=== PATIENT | male | born 1945 | race Caucasian/White ===

== ENCOUNTER 2017-01-12 23:15 | Inpatient (IN) | payer OTHER ==
[~2017-01-12] VITALS: Ht 188 cm; Wt 152.1 kg
[~2017-01-12 23:15] MED LIST: ALLOPURINOL300 MG PO; ALPHAGAN P100 DROP/5 BOTH EYES; ATACAND4 MG PO; ATENOLOL-CHLOR1 EAC1 PO; BISOPROLOL-HCT1 EACH PO; BYETTA10 MCG/0.0 SQ; CALCITRIOL0.25 MCG PO; CARDURA4 MG PO; CEFTIN500 MG PO; DIOVAN320 MG PO; FLONASE16 G1 BOTH NARES; FUROSEMIDE40 MG PO; GLUCOVANCE 5-51 EACH PO; GLUCOVANCE 51 TABLET PO; HUMALOG100 UNIT/2 SC; IRON325 M1 PO; KLOR-CON M2020 MEQ PO; LANTUS 10100 UNITS/ SC; LANTUS 3 M100 UNITS1 PO; LANTUS100 UNIT/1 SQ; LASIX40 MG PO; METADATE ER20 MG PO; METHYLPHENIDATE40 MG PO; NORVASC10 MG PO; NOVOLOG PE100 UNITS/ SC; NOVOLOG100 UNIT/1 SC; PRED FORTE100 DROP/5 BOTH EYES; RITALIN SR, MET20 MG PO; RITALIN-SR20 MG PO; TRAMADOL HCL50 MG PO; VITAMIN D-32000 UNI2 PO; VITAMIN D250000 UNIT PO; WARFARIN SODIUM5 MG PO; ZIAC 2.5/6.251 TAB PO; ZITHROMAX Z-PA250 MG PO; [UNRECOGNIZED DRUG - CODE] LEFT EYE
[2017-01-13 00:58] LABS: HEMATOCRIT 41.5 % (38.0-50.0); MCH 29.4 PG (29.0-34.0); MCHC 32.8 G/DL (30.0-36.0); MCV 89.6 FL (86-99); MEAN PLAT.VOLUME 11.8 uM^3 (9.0-12.4); PLATELET COUNT 218 K/uL (156-360); RBC DIS.WIDTH-CV 14.4 % (11.8-14.6); RBC DIS.WIDTH-SD 47.5 % (39-53); RED BLOOD COUNT 4.63 M/uL (4.00-5.50); WHITE BLOOD COUNT 13.2 K/uL (4.1-10.2)
[2017-01-13 01:06] LABS: CHLORIDE 101 mEq/L (99-109); POTASSIUM 4.6 mEq/L (3.7-5.4); SODIUM 137 mEq/L (136-147)
[2017-01-13 01:08] LABS: GLUCOSE 310 mg/dL (70-99)
[2017-01-13 01:09] LABS: ANION GAP 13 MEQ/L (2-14); INTER. NORMALIZED RATIO 2.3; PROTHROMBIN TIME 23.8 (9.2-11.2); PTT 42.4 (25-32)
[2017-01-13 01:10] LABS: TOTAL BILIRUBIN 0.6 mg/dL (0.0-1.0)
[2017-01-13 01:11] LABS: ALKALINE PHOSPHATASE 80 IU/L (3-129)
[2017-01-13 01:12] LABS: GFR ESTIMATE (CALCULATED) 24 mL/min/
[2017-01-13 01:13] LABS: UREA NITROGEN (BUN) 17 mg/dL (9-23)
[2017-01-13 01:17] LABS: TROP-I INTERPRETATION NEGATIVE; TROPONIN-I 0.06 ng/mL (0.0-0.30)
[2017-01-13] MEDS ORDERED: WARFARIN SODIUM4 MG PO (02:03)
[2017-01-13] MEDS ORDERED: BASAGLAR K100 UNIT/1 SC (02:05)
[2017-01-13] MEDS ORDERED: HUMALOG100 UNIT/2 SC (02:05)
[2017-01-13] MEDS ORDERED: METOPROLOL TART50 MG PO (02:06)
[2017-01-13] MEDS ORDERED: TRAMADOL HCL50 MG PO (02:07)
[2017-01-13] MEDS ORDERED: RANITIDINE HCL150 MG PO (02:08)
[2017-01-13] MEDS ORDERED: ERGOCALCIF50000 UNIT PO (02:08)
[2017-01-13] MEDS ORDERED: MIRALAX17 GM PO (02:08)
[2017-01-13 04:28] VITALS: BP 145/63
[2017-01-13 04:59] VITALS: BP 145/63
[2017-01-13 06:56] LABS: POINT-OF-CARE METER ID UU14188577
[2017-01-13 07:03] LABS: METH RESISTANT S AUREUS PCR NEGATIVE (NEGATIVE); PROBE CHECK PASS; SPECIMEN PROCESSING CONTROL PASS
[2017-01-13 08:48] VITALS: BP 151/68
[2017-01-13 12:30] VITALS: BP 122/58
[2017-01-13 13:29] LABS: BASOPHIL COUNT 0.1 K/uL (0-0.1); EOSINOPHIL COUNT 0.2 K/uL (0-0.3); HEMATOCRIT 36.3 % (38.0-50.0); IMMATURE GRANULOCYTE (%) 0.5 % (0.0-0.7); IMMATURE GRANULOCYTE COUNT 0.1 K/uL; INSTRUMENT ABS NEUTROPHIL CT 7.3 K/uL; LYMPHOCYTE COUNT 1.3 K/uL (1.0-2.8); MCH 28.7 PG (29.0-34.0); MCHC 31.7 G/DL (30.0-36.0); MCV 90.5 FL (86-99); MEAN PLAT.VOLUME 11.5 uM^3 (9.0-12.4); MONOCYTE (%) 7.4 % (3-12); MONOCYTE COUNT 0.7 K/uL (0-0.8); NEUTROPHIL (%) 75.6 % (45-76); NEUTROPHIL COUNT 7.3 K/uL (1.8-6.4); PLATELET COUNT 185 K/uL (156-360); RBC DIS.WIDTH-CV 14.5 % (11.8-14.6); RBC DIS.WIDTH-SD 48.4 % (39-53); RED BLOOD COUNT 4.01 M/uL (4.00-5.50); WHITE BLOOD COUNT 9.6 K/uL (4.1-10.2)
[2017-01-13 13:39] LABS: ANION GAP 7 MEQ/L (2-14); CHLORIDE 102 MEQ/L (99-109); GFR ESTIMATE (CALCULATED) 26 mL/min/; GLUCOSE 232 mg/dL (70-99); SAMPLE HEMOLYSIS CHECK 1; SAMPLE ICTERIC CHECK 0; SAMPLE LIPEMIA CHECK 0; SODIUM 135 MEQ/L (136-147); UREA NITROGEN (BUN) 22 mg/dL (9-23)
[2017-01-13 16:21] VITALS: BP 152/72
[2017-01-13 19:35] VITALS: BP 151/69
[2017-01-13 21:55] LABS: POINT-OF-CARE METER ID UU14188577
[2017-01-14] VITALS (7 sets, daily range): BP systolic 101–184; BP diastolic 51–86
[2017-01-14 06:42] LABS: INTER. NORMALIZED RATIO 2.6; PROTHROMBIN TIME 26.8 (9.2-11.2)
[2017-01-14 06:58] LABS: INTERNAL CONTROL VALID? YES
[2017-01-14 07:35] LABS: POINT-OF-CARE METER ID UU14188577
[2017-01-14 09:24] LABS: HEMATOCRIT 36.9 % (38.0-50.0); MCHC 32.2 G/DL (30.0-36.0); PLATELET COUNT 181 K/uL (156-360); RBC DIS.WIDTH-CV 14.5 % (11.8-14.6); RBC DIS.WIDTH-SD 47.6 % (39-53); WHITE BLOOD COUNT 8.4 K/uL (4.1-10.2)
[2017-01-14 09:37] LABS: ANION GAP 11 MEQ/L (2-14); CHLORIDE 101 MEQ/L (99-109); POTASSIUM 3.5 MEQ/L (3.7-5.4); SAMPLE HEMOLYSIS CHECK 0; SAMPLE ICTERIC CHECK 0; SAMPLE LIPEMIA CHECK 0; SODIUM 136 MEQ/L (136-147)
[2017-01-14 09:43] LABS: GFR ESTIMATE (CALCULATED) 27 mL/min/; GLUCOSE 199 mg/dL (70-99); UREA NITROGEN (BUN) 29 mg/dL (9-23)
[2017-01-14 13:26] LABS: AHBS INDEX 0; HBSG INDEX 0.23; HEPATITIS B SURFACE ANTIBODY Nonreactive
[2017-01-14 13:47] LABS: POINT-OF-CARE METER ID UU14188577
[2017-01-14 16:06] LABS: POINT-OF-CARE METER ID UU14188577
[2017-01-15 04:26] VITALS: BP 133/63
[2017-01-15 05:54] LABS: BASOPHIL COUNT 0.1 K/uL (0-0.1); EOSINOPHIL (%) 5.6 % (0-5); EOSINOPHIL COUNT 0.5 K/uL (0-0.3); HEMATOCRIT 36.3 % (38.0-50.0); IMMATURE GRANULOCYTE (%) 0.5 % (0.0-0.7); INSTRUMENT ABS NEUTROPHIL CT 5.4 K/uL; MCHC 32.2 G/DL (30.0-36.0); MCV 89.9 FL (86-99); MEAN PLAT.VOLUME 11.4 uM^3 (9.0-12.4); MONOCYTE (%) 9.5 % (3-12); MONOCYTE COUNT 0.8 K/uL (0-0.8); NEUTROPHIL (%) 61.3 % (45-76); NEUTROPHIL COUNT 5.4 K/uL (1.8-6.4); PLATELET COUNT 185 K/uL (156-360); RBC DIS.WIDTH-CV 14.2 % (11.8-14.6); RBC DIS.WIDTH-SD 46.7 % (39-53); RED BLOOD COUNT 4.04 M/uL (4.00-5.50); WHITE BLOOD COUNT 8.8 K/uL (4.1-10.2)
[2017-01-15 06:01] LABS: POINT-OF-CARE METER ID UU14188577
[2017-01-15 06:26] LABS: ALKALINE PHOSPHATASE 63 IU/L (3-129); ANION GAP 8 MEQ/L (2-14); CHLORIDE 99 MEQ/L (99-109); GFR ESTIMATE (CALCULATED) 23 mL/min/; GLUCOSE 172 mg/dL (70-99); POTASSIUM 4.4 MEQ/L (3.7-5.4); SAMPLE HEMOLYSIS CHECK 1; SAMPLE ICTERIC CHECK 0; SAMPLE LIPEMIA CHECK 0; SODIUM 136 MEQ/L (136-147); TOTAL BILIRUBIN 0.4 MG/DL (0.0-1.0); UREA NITROGEN (BUN) 32 mg/dL (9-23)
[2017-01-15 07:09] LABS: INTER. NORMALIZED RATIO 2.3; PROTHROMBIN TIME 23.8 (9.2-11.2)
[2017-01-15 07:30] VITALS: BP 124/65
[2017-01-15 11:49] VITALS: BP 125/67
[2017-01-15 16:15] VITALS: BP 147/67
[2017-01-15 20:31] VITALS: BP 130/59
[2017-01-15 21:05] LABS: POINT-OF-CARE METER ID UU14149397
[2017-01-15 23:52] VITALS: BP 113/57
[2017-01-16 03:59] VITALS: BP 124/59
[2017-01-16 06:26] LABS: BASOPHIL COUNT 0.1 K/uL (0-0.1); EOSINOPHIL (%) 6.7 % (0-5); EOSINOPHIL COUNT 0.6 K/uL (0-0.3); HEMATOCRIT 35.6 % (38.0-50.0); IMMATURE GRANULOCYTE (%) 0.6 % (0.0-0.7); IMMATURE GRANULOCYTE COUNT 0.1 K/uL; INSTRUMENT ABS NEUTROPHIL CT 5.7 K/uL; LYMPHOCYTE COUNT 1.6 K/uL (1.0-2.8); MCH 28.7 PG (29.0-34.0); MCV 89.7 FL (86-99); MEAN PLAT.VOLUME 11.5 uM^3 (9.0-12.4); MONOCYTE (%) 8.8 % (3-12); MONOCYTE COUNT 0.8 K/uL (0-0.8); NEUTROPHIL (%) 64.9 % (45-76); NEUTROPHIL COUNT 5.7 K/uL (1.8-6.4); PLATELET COUNT 186 K/uL (156-360); RBC DIS.WIDTH-CV 14.1 % (11.8-14.6); RBC DIS.WIDTH-SD 46.7 % (39-53); RED BLOOD COUNT 3.97 M/uL (4.00-5.50); WHITE BLOOD COUNT 8.8 K/uL (4.1-10.2)
[2017-01-16 06:48] LABS: INTER. NORMALIZED RATIO 2.2; PROTHROMBIN TIME 23.1 (9.2-11.2)
[2017-01-16 06:53] LABS: ALKALINE PHOSPHATASE 59 IU/L (3-129); ANION GAP 10 MEQ/L (2-14); CHLORIDE 97 MEQ/L (99-109); GFR ESTIMATE (CALCULATED) 21 mL/min/; GLUCOSE 183 mg/dL (70-99); POTASSIUM 4.3 MEQ/L (3.7-5.4); SAMPLE HEMOLYSIS CHECK 0; SAMPLE ICTERIC CHECK 0; SAMPLE LIPEMIA CHECK 0; SODIUM 134 MEQ/L (136-147); TOTAL BILIRUBIN 0.4 MG/DL (0.0-1.0); UREA NITROGEN (BUN) 47 mg/dL (9-23); URIC ACID 5.8 mg/dL (3.1-9.2)
[2017-01-16 08:03] VITALS: BP 146/79
[2017-01-16 12:03] VITALS: BP 116/62
[2017-01-16 16:13] VITALS: BP 138/67
[2017-01-16 19:36] VITALS: BP 121/58
[2017-01-16 23:34] VITALS: BP 112/53
[2017-01-17 03:38] VITALS: BP 131/63
[2017-01-17 05:40] LABS: BASOPHIL COUNT 0.1 K/uL (0-0.1); EOSINOPHIL (%) 6.5 % (0-5); EOSINOPHIL COUNT 0.6 K/uL (0-0.3); HEMATOCRIT 33.9 % (38.0-50.0); IMMATURE GRANULOCYTE (%) 0.6 % (0.0-0.7); IMMATURE GRANULOCYTE COUNT 0.1 K/uL; INSTRUMENT ABS NEUTROPHIL CT 5.7 K/uL; LYMPHOCYTE COUNT 1.5 K/uL (1.0-2.8); MCHC 32.4 G/DL (30.0-36.0); MCV 89.4 FL (86-99); MEAN PLAT.VOLUME 11.7 uM^3 (9.0-12.4); MONOCYTE (%) 11.2 % (3-12); NEUTROPHIL (%) 64.5 % (45-76); NEUTROPHIL COUNT 5.7 K/uL (1.8-6.4); PLATELET COUNT 162 K/uL (156-360); RBC DIS.WIDTH-CV 14.1 % (11.8-14.6); RBC DIS.WIDTH-SD 46.3 % (39-53); RED BLOOD COUNT 3.79 M/uL (4.00-5.50); WHITE BLOOD COUNT 8.9 K/uL (4.1-10.2)
[2017-01-17 05:45] LABS: INTER. NORMALIZED RATIO 2.3; PROTHROMBIN TIME 24.5 (9.2-11.2)
[2017-01-17 05:54] LABS: ALKALINE PHOSPHATASE 52 IU/L (3-129); ANION GAP 8 MEQ/L (2-14); ANION GAP 9 MEQ/L (2-14); CHLORIDE 98 MEQ/L (99-109); GFR ESTIMATE (CALCULATED) 22 mL/min/; GLUCOSE 169 mg/dL (70-99); POTASSIUM 4.4 MEQ/L (3.7-5.4); POTASSIUM 4.5 MEQ/L (3.7-5.4); SAMPLE HEMOLYSIS CHECK 0; SAMPLE ICTERIC CHECK 0; SAMPLE LIPEMIA CHECK 0; SODIUM 133 MEQ/L (136-147); SODIUM 134 MEQ/L (136-147); TOTAL BILIRUBIN 0.4 MG/DL (0.0-1.0); UREA NITROGEN (BUN) 57 mg/dL (9-23); UREA NITROGEN (BUN) 58 mg/dL (9-23)
[2017-01-17 15:35] VITALS: BP 125/59
[2017-01-17 19:32] VITALS: BP 119/69
[2017-01-17 23:35] VITALS: BP 116/55
[2017-01-18 04:30] VITALS: BP 125/60
[2017-01-18 05:51] LABS: BASOPHIL COUNT 0.1 K/uL (0-0.1); EOSINOPHIL (%) 5.8 % (0-5); EOSINOPHIL COUNT 0.4 K/uL (0-0.3); HEMATOCRIT 35.5 % (38.0-50.0); IMMATURE GRANULOCYTE (%) 0.5 % (0.0-0.7); INSTRUMENT ABS NEUTROPHIL CT 4.7 K/uL; LYMPHOCYTE COUNT 1.3 K/uL (1.0-2.8); MCH 28.5 PG (29.0-34.0); MCHC 31.5 G/DL (30.0-36.0); MCV 90.3 FL (86-99); MEAN PLAT.VOLUME 11.5 uM^3 (9.0-12.4); MONOCYTE (%) 12.6 % (3-12); NEUTROPHIL (%) 62.8 % (45-76); NEUTROPHIL COUNT 4.7 K/uL (1.8-6.4); PLATELET COUNT 166 K/uL (156-360); RBC DIS.WIDTH-CV 14.3 % (11.8-14.6); RBC DIS.WIDTH-SD 46.9 % (39-53); RED BLOOD COUNT 3.93 M/uL (4.00-5.50); WHITE BLOOD COUNT 7.5 K/uL (4.1-10.2)
[2017-01-18 05:58] LABS: INTER. NORMALIZED RATIO 2.1; PROTHROMBIN TIME 21.7 (9.2-11.2)
[2017-01-18 06:13] LABS: ALKALINE PHOSPHATASE 57 IU/L (3-129); ANION GAP 7 MEQ/L (2-14); ANION GAP 8 MEQ/L (2-14); CHLORIDE 99 MEQ/L (99-109); GFR ESTIMATE (CALCULATED) 26 mL/min/; GLUCOSE 146 mg/dL (70-99); POTASSIUM 4.6 MEQ/L (3.7-5.4); SAMPLE HEMOLYSIS CHECK 0; SAMPLE ICTERIC CHECK 0; SAMPLE LIPEMIA CHECK 0; SODIUM 135 MEQ/L (136-147); SODIUM 136 MEQ/L (136-147); TOTAL BILIRUBIN 0.4 MG/DL (0.0-1.0); UREA NITROGEN (BUN) 35 mg/dL (9-23); UREA NITROGEN (BUN) 36 mg/dL (9-23)
[2017-01-18 06:24] LABS: POINT-OF-CARE METER ID UU14149397
[2017-01-18] MEDS ORDERED: FUROSEMIDE80 MG PO (07:07)
[2017-01-18] MEDS ORDERED: BENZONATATE100 MG PO (07:07)
[2017-01-18] MEDS ORDERED: ALLOPURINOL300 MG PO (07:07)
[2017-01-18] MEDS ORDERED: LOSARTAN POTASS50 MG PO (07:07)
[2017-01-18] MEDS ORDERED: WHEELCHAIR1 EACH MC (07:08)
[2017-01-18 08:31] VITALS: BP 138/63
[2017-01-18 11:23] VITALS: BP 139/71
[2017-01-18 11:43] LABS: POINT-OF-CARE METER ID UU14188577
== END 2017-01-18 13:11 | disposition home or self-care (01) | DRG 193 ==
LOC: EME → EDBD 23:15 → 3EAST 01-13 02:08 → EDOF 01-13 02:08 → 3EAST 01-13 04:31
PROVIDERS: Emergency Medicine; Family Medicine; Internal Medicine Nephrology; Nurse Practitioner Adult Health; Pediatrics
PROC: 5A1D60Z (ICD-10-PCS; principal; 2017-01-14)
DX: J18.9 Pneumonia, unspecified organism (principal); N18.6 End stage renal disease; I12.0 Hypertensive chronic kidney disease with stage 5 chronic kidney disease or end stage renal disease; Z68.41 Body mass index [BMI] 40.0-44.9, adult; F90.0 Attention-deficit hyperactivity disorder, predominantly inattentive type; E11.22 Type 2 diabetes mellitus with diabetic chronic kidney disease; D63.1 Anemia in chronic kidney disease; I48.91 Unspecified atrial fibrillation; G47.33 Obstructive sleep apnea (adult) (pediatric); E66.01 Morbid (severe) obesity due to excess calories; K21.9 Gastro-esophageal reflux disease without esophagitis; E78.5 Hyperlipidemia, unspecified; E11.21 Type 2 diabetes mellitus with diabetic nephropathy; F90.9 Attention-deficit hyperactivity disorder, unspecified type; N18.5 Chronic kidney disease, stage 5; Z99.2 Dependence on renal dialysis; Z79.01 Long term (current) use of anticoagulants
CPT/HCPCS: 71010; 71020; 80048; 80053; 80069; 81050; 82575; 82948; 83605; 84100; 84484; 84550; 85025; 85027; 85610; 85730; 86706; 87040; 87070; 87205; 87340; 87449; 87641; 93005; 94799; 99281; 99285; J0456; J0692; J1644; J1815; J7030; J7050

== ENCOUNTER 2017-01-20 14:04 | Emergency (ER) | payer OTHER ==
[~2017-01-20] VITALS: Ht 188 cm; Wt 155.4 kg
[~2017-01-20 14:04] MED LIST changes: +BASAGLAR K100 UNIT/1 SC; +BENZONATATE100 MG PO; +ERGOCALCIF50000 UNIT PO; +FUROSEMIDE80 MG PO; +LOSARTAN POTASS50 MG PO; +METOPROLOL TART50 MG PO; +MIRALAX17 GM PO; +RANITIDINE HCL150 MG PO; +WARFARIN SODIUM4 MG PO; +WHEELCHAIR1 EACH MC
[2017-01-20 14:44] LABS: HEMATOCRIT 36.1 % (38.0-50.0); MCH 28.9 PG (29.0-34.0); MCHC 32.7 G/DL (30.0-36.0); MCV 88.5 FL (86-99); MEAN PLAT.VOLUME 11.5 uM^3 (9.0-12.4); PLATELET COUNT 174 K/uL (156-360); RBC DIS.WIDTH-CV 14.3 % (11.8-14.6); RED BLOOD COUNT 4.08 M/uL (4.00-5.50); WHITE BLOOD COUNT 7.2 K/uL (4.1-10.2)
[2017-01-20 15:01] LABS: CHLORIDE 103 mEq/L (99-109); POTASSIUM 4.1 mEq/L (3.7-5.4); SODIUM 137 mEq/L (136-147)
[2017-01-20 15:02] LABS: GLUCOSE 199 mg/dL (70-99)
[2017-01-20 15:04] LABS: ANION GAP 12 MEQ/L (2-14)
[2017-01-20 15:06] LABS: GFR ESTIMATE (CALCULATED) 27 mL/min/
[2017-01-20 15:07] LABS: UREA NITROGEN (BUN) 49 mg/dL (9-23)
[2017-01-20 15:10] LABS: TROP-I INTERPRETATION NEGATIVE; TROPONIN-I 0.05 ng/mL (0.0-0.30)
[2017-01-20] MEDS ORDERED: MUCINEX COLD-F177 ML PO (16:22)
[2017-01-20 16:48] VITALS: BP 149/75
== END 2017-01-20 17:48 | disposition home or self-care (01) ==
LOC: EME 14:04
PROVIDERS: Emergency Medicine
DX: I48.92 Unspecified atrial flutter (principal); J06.9 Acute upper respiratory infection, unspecified; I10 Essential (primary) hypertension; E11.9 Type 2 diabetes mellitus without complications; N28.9 Disorder of kidney and ureter, unspecified; Z99.2 Dependence on renal dialysis; Z79.01 Long term (current) use of anticoagulants
CPT/HCPCS: 71020; 80048; 84484; 85027; 93005; 99281; 99284; G8978 GP CM; G8979 CJ; G8987 GO CM; G8988 GO CL

== ENCOUNTER 2017-01-22 14:09 | Emergency (ER) | payer OTHER ==
[~2017-01-22] VITALS: Ht 188 cm; Wt 155.2 kg
[~2017-01-22 14:09] MED LIST changes: +MUCINEX COLD-F177 ML PO
[2017-01-22 22:00] VITALS: BP 120/69
== END 2017-01-22 22:07 | disposition home or self-care (01) ==
LOC: EME 14:09
DX: L89.319 Pressure ulcer of right buttock, unspecified stage (principal); I12.0 Hypertensive chronic kidney disease with stage 5 chronic kidney disease or end stage renal disease; N18.6 End stage renal disease; Z99.2 Dependence on renal dialysis; E11.9 Type 2 diabetes mellitus without complications; Z87.442 Personal history of urinary calculi
CPT/HCPCS: 99281; 99285

== ENCOUNTER 2017-01-27 18:25 | Emergency (ER) | payer OTHER ==
[~2017-01-27] VITALS: Ht 188 cm; Wt 153.1 kg
[2017-01-27 19:53] LABS: HEMATOCRIT 36.8 % (38.0-50.0); MCH 28.9 PG (29.0-34.0); MCHC 32.1 G/DL (30.0-36.0); MEAN PLAT.VOLUME 10.9 uM^3 (9.0-12.4); PLATELET COUNT 264 K/uL (156-360); RBC DIS.WIDTH-CV 14.6 % (11.8-14.6); RBC DIS.WIDTH-SD 46.7 % (39-53); RED BLOOD COUNT 4.09 M/uL (4.00-5.50); WHITE BLOOD COUNT 10.2 K/uL (4.1-10.2)
[2017-01-27 20:00] LABS: CHLORIDE 101 mEq/L (99-109); POTASSIUM 4.1 mEq/L (3.7-5.4); SODIUM 139 mEq/L (136-147)
[2017-01-27 20:01] LABS: GLUCOSE 212 mg/dL (70-99)
[2017-01-27 20:03] LABS: ANION GAP 15 MEQ/L (2-14)
[2017-01-27 20:05] LABS: GFR ESTIMATE (CALCULATED) 33 mL/min/
[2017-01-27 20:06] LABS: UREA NITROGEN (BUN) 26 mg/dL (9-23)
[2017-01-27 20:11] LABS: TROP-I INTERPRETATION NEGATIVE; TROPONIN-I 0.04 ng/mL (0.0-0.30)
[2017-01-27 22:09] LABS: ADD MIUA? YES; BILIRUBIN NEGATIVE; BLOOD SMALL; COLOR AMBER ((YELLOW)); GLUCOSE (STRIP) NEGATIVE; KETONES NEGATIVE; LEUKOCYTES MODERATE; NITRITE NEGATIVE; PROTEIN (STRIP) 100; SPECIFIC GRAVITY 1.017 (1.000-1.030); UROBILINOGEN 0.2 MG/DL (0.2-1.0)
[2017-01-27] MEDS ORDERED: KEFLEX500 MG PO (22:38)
[2017-01-27 22:44] LABS: WHITE BLOOD CELLS TNTC /HPF (0-5)
[2017-01-27 23:56] VITALS: BP 122/65
== END 2017-01-27 23:56 | disposition home or self-care (01) ==
LOC: EME 18:25
PROVIDERS: Emergency Medicine
DX: E86.0 Dehydration (principal); N39.0 Urinary tract infection, site not specified; E11.22 Type 2 diabetes mellitus with diabetic chronic kidney disease; I12.0 Hypertensive chronic kidney disease with stage 5 chronic kidney disease or end stage renal disease; N18.6 End stage renal disease; Z99.2 Dependence on renal dialysis; R06.02 Shortness of breath
CPT/HCPCS: 71020; 80048; 81003; 83605; 84484; 85027; 87040; 87086; 87106; 93005; 99281; 99285; J7030

== ENCOUNTER 2017-02-09 08:04 | Day surgery (SDC) | payer OTHER ==
[~2017-02-09 08:04] MED LIST changes: +KEFLEX500 MG PO
[2017-02-09] MEDS ORDERED: LASIX40 MG PO (08:25)
[2017-02-09] MEDS ORDERED: LANTUS 10100 UNITS/ SC (08:27)
[2017-02-09] MEDS ORDERED: CLARITIN10 M3 PO (08:28)
[2017-02-09 08:41] LABS: POINT-OF-CARE METER ID UU13113696
[2017-02-09 10:01] LABS: METH RESISTANT S AUREUS PCR POSITIVE (NEGATIVE)
[2017-02-09 10:02] LABS: PROBE CHECK PASS
== END 2017-02-09 12:35 | disposition home or self-care (01) ==
LOC: CATH 08:04
PROVIDERS: Surgery
DX: T82.514A Breakdown (mechanical) of infusion catheter, initial encounter (principal); I12.0 Hypertensive chronic kidney disease with stage 5 chronic kidney disease or end stage renal disease; E11.22 Type 2 diabetes mellitus with diabetic chronic kidney disease; N18.6 End stage renal disease; Z99.2 Dependence on renal dialysis; I48.91 Unspecified atrial fibrillation; Z79.01 Long term (current) use of anticoagulants; E66.01 Morbid (severe) obesity due to excess calories; Z68.41 Body mass index [BMI] 40.0-44.9, adult; Z88.1 Allergy status to other antibiotic agents; Y82.8 Other medical devices associated with adverse incidents
CPT/HCPCS: 82948; 87641; C1750; J0690; J1644; J2250; J3010; S0020

== ENCOUNTER 2017-02-16 08:36 | Day surgery (SDC) | payer OTHER ==
[~2017-02-16] VITALS: Ht 188 cm; Wt 156.0 kg
[~2017-02-16 08:36] MED LIST changes: +CLARITIN10 M3 PO; +MAGNESIUM PO; +MAGNESIUM30 MG PO
[2017-02-16 09:36] VITALS: BP 150/65
[2017-02-16 09:51] LABS: HEMATOCRIT 34.7 % (38.0-50.0); MCH 30.2 PG (29.0-34.0); MCHC 32.6 G/DL (30.0-36.0); MCV 92.8 FL (86-99); PLATELET COUNT 237 K/uL (156-360); RBC DIS.WIDTH-CV 14.7 % (11.8-14.6); RBC DIS.WIDTH-SD 49.5 % (39-53); RED BLOOD COUNT 3.74 M/uL (4.00-5.50); WHITE BLOOD COUNT 9.8 K/uL (4.1-10.2)
[2017-02-16 09:59] LABS: INTER. NORMALIZED RATIO 1.3; PROTHROMBIN TIME 12.8 (9.2-11.2)
[2017-02-16 10:04] LABS: CHLORIDE 100 mEq/L (99-109); POTASSIUM 4.3 mEq/L (3.7-5.4); SODIUM 137 mEq/L (136-147)
[2017-02-16 10:06] LABS: GLUCOSE 211 mg/dL (70-99)
[2017-02-16 10:07] LABS: ANION GAP 11 MEQ/L (2-14)
[2017-02-16 10:10] LABS: GFR ESTIMATE (CALCULATED) 30 mL/min/; UREA NITROGEN (BUN) 24 mg/dL (9-23)
[2017-02-16 11:11] LABS: METH RESISTANT S AUREUS PCR POSITIVE (NEGATIVE); PROBE CHECK PASS
[2017-02-16 14:02] VITALS: BP 129/61
[2017-02-16 14:55] VITALS: BP 149/67
== END 2017-02-16 15:08 | disposition home or self-care (01) ==
LOC: SDC 08:36
PROVIDERS: Surgery
DX: I12.0 Hypertensive chronic kidney disease with stage 5 chronic kidney disease or end stage renal disease (principal); N18.6 End stage renal disease; Z99.2 Dependence on renal dialysis; E11.22 Type 2 diabetes mellitus with diabetic chronic kidney disease; I48.91 Unspecified atrial fibrillation; Z79.01 Long term (current) use of anticoagulants
CPT/HCPCS: 80048; 82948; 85027; 85610; 87641; 93005; J0131; J0690; J1644; J2250; J2405; J2720; J3010

== ENCOUNTER 2017-02-19 16:54 | Emergency (ER) | payer OTHER ==
[~2017-02-19] VITALS: Ht 188 cm; Wt 156.5 kg
[2017-02-19 17:36] LABS: HEMATOCRIT 33.9 % (38.0-50.0); MCH 30.3 PG (29.0-34.0); MCHC 32.4 G/DL (30.0-36.0); MCV 93.4 FL (86-99); MEAN PLAT.VOLUME 10.7 uM^3 (9.0-12.4); PLATELET COUNT 227 K/uL (156-360); RBC DIS.WIDTH-SD 50.5 % (39-53); RED BLOOD COUNT 3.63 M/uL (4.00-5.50); WHITE BLOOD COUNT 9.6 K/uL (4.1-10.2)
[2017-02-19 17:46] LABS: INTER. NORMALIZED RATIO 1.2; PROTHROMBIN TIME 12.6 (9.2-11.2); PTT 43.7 (25-32)
[2017-02-19 17:48] LABS: CHLORIDE 97 mEq/L (99-109); POTASSIUM 3.5 mEq/L (3.7-5.4); SODIUM 136 mEq/L (136-147)
[2017-02-19 17:50] LABS: GLUCOSE 183 mg/dL (70-99)
[2017-02-19 17:51] LABS: ANION GAP 12 MEQ/L (2-14)
[2017-02-19 17:52] LABS: TOTAL BILIRUBIN 0.4 mg/dL (0.0-1.0)
[2017-02-19 17:53] LABS: ALKALINE PHOSPHATASE 64 IU/L (3-129)
[2017-02-19 17:54] LABS: GFR ESTIMATE (CALCULATED) 46 mL/min/
[2017-02-19 17:55] LABS: UREA NITROGEN (BUN) 19 mg/dL (9-23)
[2017-02-19 17:57] LABS: TROP-I INTERPRETATION NEGATIVE; TROPONIN-I 0.03 ng/mL (0.0-0.30)
[2017-02-19] MEDS ORDERED: HYDROCODON-ACE1 EAC7 PO (19:51)
[2017-02-19 20:28] VITALS: BP 120/68
== END 2017-02-19 20:42 | disposition home or self-care (01) ==
LOC: EME 16:54
PROVIDERS: Emergency Medicine
DX: R55 Syncope and collapse (principal); N18.6 End stage renal disease; Z99.2 Dependence on renal dialysis; E11.9 Type 2 diabetes mellitus without complications
CPT/HCPCS: 80053; 84484; 85027; 85610; 85730; 93005; 99281; 99284; J7030

== ENCOUNTER 2017-03-05 21:30 | Emergency (ER) | payer OTHER ==
[~2017-03-05] VITALS: Ht 188 cm; Wt 155.9 kg
[~2017-03-05 21:30] MED LIST changes: +HYDROCODON-ACE1 EAC7 PO
[2017-03-05 22:29] LABS: HEMATOCRIT 36.7 % (38.0-50.0); MCH 30.7 PG (29.0-34.0); MCV 93.1 FL (86-99); MEAN PLAT.VOLUME 10.4 uM^3 (9.0-12.4); PLATELET COUNT 254 K/uL (156-360); RBC DIS.WIDTH-CV 14.6 % (11.8-14.6); RBC DIS.WIDTH-SD 49.6 % (39-53); RED BLOOD COUNT 3.94 M/uL (4.00-5.50); WHITE BLOOD COUNT 12.8 K/uL (4.1-10.2)
[2017-03-05 22:32] LABS: CHLORIDE 95 mEq/L (99-109); POTASSIUM 3.7 mEq/L (3.7-5.4); SODIUM 135 mEq/L (136-147)
[2017-03-05 22:34] LABS: GLUCOSE 192 mg/dL (70-99)
[2017-03-05 22:34] LABS: INTER. NORMALIZED RATIO 1.4; PROTHROMBIN TIME 14.5 (9.2-11.2); PTT 30.5 (25-32)
[2017-03-05 22:35] LABS: ANION GAP 11 MEQ/L (2-14)
[2017-03-05 22:38] LABS: GFR ESTIMATE (CALCULATED) 27 mL/min/
[2017-03-05 22:39] LABS: UREA NITROGEN (BUN) 30 mg/dL (9-23)
[2017-03-05 22:41] LABS: TROP-I INTERPRETATION NEGATIVE; TROPONIN-I 0.03 ng/mL (0.0-0.30)
[2017-03-05 23:23] VITALS: BP 104/56
== END 2017-03-06 01:23 | disposition home or self-care (01) ==
LOC: EME → EDBD 21:30 → EME 21:30
PROVIDERS: Emergency Medicine
DX: E86.0 Dehydration (principal); R42 Dizziness and giddiness; Z99.2 Dependence on renal dialysis; I10 Essential (primary) hypertension; E11.9 Type 2 diabetes mellitus without complications; Z87.442 Personal history of urinary calculi; Z79.01 Long term (current) use of anticoagulants; Z79.4 Long term (current) use of insulin
CPT/HCPCS: 71020; 80048; 83880; 84484; 85027; 85610; 85730; 93005; 99281; 99285; J7040

== ENCOUNTER → 2017-04-15 | Outpatient (CLI) | payer OTHER ==
[~2017-04-15] MED LIST changes: +ATENOLOL/CHLOR1 EAC1 PO
== END | disposition home or self-care (01) ==
LOC: AMB 08:38
PROC: 05PYX3Z Removal of Infusion Device from Upper Vein, External Approach (ICD-10-PCS; principal; 2017-04-15)
DX: N18.6 End stage renal disease (principal)

== ENCOUNTER 2017-07-18 09:30 | Day surgery (SDC) | payer OTHER ==
[~2017-07-18] VITALS: Ht 188 cm; Wt 154.0 kg
[~2017-07-18 09:30] MED LIST changes: +RENA-VITE RX T1 EACH PO
[2017-07-18 11:35] LABS: POINT-OF-CARE METER ID UU13113696
[2017-07-18 12:31] LABS: METH RESISTANT S AUREUS PCR NEGATIVE (NEGATIVE)
[2017-07-18 12:45] LABS: PROBE CHECK PASS; SPECIMEN PROCESSING CONTROL PASS
== END 2017-07-18 13:45 | disposition home or self-care (01) ==
LOC: CATH 09:30
PROVIDERS: Surgery
PROC: 057Y3DZ Dilation of Upper Vein with Intraluminal Device, Percutaneous Approach (ICD-10-PCS; principal; 2017-07-18)
DX: T82.858A Stenosis of other vascular prosthetic devices, implants and grafts, initial encounter (principal); N18.6 End stage renal disease; Z99.2 Dependence on renal dialysis; G62.9 Polyneuropathy, unspecified; Z79.01 Long term (current) use of anticoagulants; E66.01 Morbid (severe) obesity due to excess calories
CPT/HCPCS: 82948; 87641; C1725; C1769; C1874; C1894; J1644; J2250; J3010

== ENCOUNTER 2017-07-23 17:55 | Emergency (ER) | payer OTHER ==
[~2017-07-23] VITALS: Ht 188 cm; Wt 150.7 kg
[2017-07-23 18:54] LABS: HEMATOCRIT 42.8 % (38.0-50.0); MCH 30.7 PG (29.0-34.0); MCHC 34.1 G/DL (30.0-36.0); MCV 90.1 FL (86-99); MEAN PLAT.VOLUME 10.7 uM^3 (9.0-12.4); PLATELET COUNT 224 K/uL (156-360); RBC DIS.WIDTH-CV 14.1 % (11.8-14.6); RBC DIS.WIDTH-SD 46.4 % (39-53); RED BLOOD COUNT 4.75 M/uL (4.00-5.50); WHITE BLOOD COUNT 14.9 K/uL (4.1-10.2)
[2017-07-23 19:04] LABS: CHLORIDE 95 mEq/L (99-109); POTASSIUM 3.4 mEq/L (3.7-5.4); SODIUM 137 mEq/L (136-147)
[2017-07-23 19:05] LABS: GLUCOSE 131 mg/dL (70-99)
[2017-07-23 19:07] LABS: ANION GAP 16 MEQ/L (2-14)
[2017-07-23 19:09] LABS: GFR ESTIMATE (CALCULATED) 33 mL/min/
[2017-07-23 19:10] LABS: UREA NITROGEN (BUN) 23 mg/dL (9-23)
[2017-07-23 19:17] LABS: TROP-I INTERPRETATION NEGATIVE; TROPONIN-I 0.02 ng/mL (0.0-0.30)
[2017-07-23 22:00] VITALS: BP 135/77
== END 2017-07-23 22:00 | disposition home or self-care (01) ==
LOC: EME 17:55
PROVIDERS: Emergency Medicine
DX: E86.0 Dehydration (principal); I12.0 Hypertensive chronic kidney disease with stage 5 chronic kidney disease or end stage renal disease; E11.22 Type 2 diabetes mellitus with diabetic chronic kidney disease; N18.6 End stage renal disease; Z99.2 Dependence on renal dialysis; Z79.4 Long term (current) use of insulin; I48.91 Unspecified atrial fibrillation; Z79.01 Long term (current) use of anticoagulants; F41.9 Anxiety disorder, unspecified
CPT/HCPCS: 80048; 84484; 85027; 93005; 99281; 99285

== ENCOUNTER 2017-10-21 08:31 | Day surgery (SDC) | payer OTHER ==
[~2017-10-21] VITALS: Ht 188 cm; Wt 154.0 kg
== END 2017-10-21 11:15 | disposition home or self-care (01) ==
LOC: CATH 08:31
PROVIDERS: Surgery
DX: T82.590A Other mechanical complication of surgically created arteriovenous fistula, initial encounter (principal); T82.858A Stenosis of other vascular prosthetic devices, implants and grafts, initial encounter; N18.6 End stage renal disease; Z99.2 Dependence on renal dialysis; E66.01 Morbid (severe) obesity due to excess calories; Z68.41 Body mass index [BMI] 40.0-44.9, adult; Z88.1 Allergy status to other antibiotic agents
CPT/HCPCS: 82948; 87641; C1725; C1769; C1894; J1644; J2250; J3010

== ENCOUNTER 2017-12-21 11:40 | Day surgery (SDC) | payer OTHER ==
[~2017-12-21] VITALS: Ht 188 cm; Wt 154.8 kg
== END 2017-12-21 14:35 | disposition home or self-care (01) ==
LOC: CATH 11:40
PROVIDERS: Surgery
DX: T82.858A Stenosis of other vascular prosthetic devices, implants and grafts, initial encounter (principal); Y83.2 Surgical operation with anastomosis, bypass or graft as the cause of abnormal reaction of the patient, or of later complication, without mention of misadventure at the time of the procedure; N18.6 End stage renal disease; Z99.2 Dependence on renal dialysis
CPT/HCPCS: 82948; 87641; C1725; C1769; C1874; C1894; J1644; J2250

== ENCOUNTER 2018-01-25 02:28 | Emergency (ER) | payer OTHER ==
[~2018-01-25] VITALS: Ht 188 cm; Wt 154.0 kg
[2018-01-25 03:28] LABS: HEMATOCRIT 38.2 % (38.0-50.0); MCH 32.2 PG (29.0-34.0); MCV 94.6 FL (86-99); PLATELET COUNT 233 K/uL (156-360); RBC DIS.WIDTH-CV 13.7 % (11.8-14.6); RED BLOOD COUNT 4.04 M/uL (4.00-5.50); WHITE BLOOD COUNT 11.3 K/uL (4.1-10.2)
[2018-01-25 03:47] LABS: ALBUMIN 3.7 g/dL (3.2-4.8); CHLORIDE 97 mEq/L (99-109); SODIUM 137 mEq/L (136-147)
[2018-01-25 03:49] LABS: GLUCOSE 299 mg/dL (70-99); TOTAL PROTEIN 7.5 g/dL (6.4-8.3)
[2018-01-25 03:51] LABS: TOTAL BILIRUBIN 0.3 mg/dL (0.0-1.0)
[2018-01-25 03:53] LABS: ALKALINE PHOSPHATASE 68 IU/L (3-129); GFR ESTIMATE (CALCULATED) 22 mL/min/ (58.99-99999)
[2018-01-25 03:54] LABS: UREA NITROGEN (BUN) 28 mg/dL (9-23)
[2018-01-25 03:55] LABS: AST (GOT) 14 IU/L (2-34)
[2018-01-25 03:56] LABS: ALT (GPT) 8 IU/L (3-49)
[2018-01-25 04:54] LABS: INTER. NORMALIZED RATIO 2.3
[2018-01-25 04:56] LABS: PTT 41.4 SEC (25-37)
[2018-01-25 05:09] LABS: TROP-I INTERPRETATION NEGATIVE; TROPONIN-I 0.03 ng/mL (0.0-0.30)
[2018-01-25] MEDS ORDERED: GABAPENTIN100 MG PO (08:35)
[2018-01-25] MEDS ORDERED: PERCOCET 5/31 TABLET PO (08:35)
[2018-01-25 09:25] VITALS: BP 117/50
== END 2018-01-25 09:26 | disposition home or self-care (01) ==
LOC: EME 02:28
PROVIDERS: Emergency Medicine
DX: T82.9XXA Unspecified complication of cardiac and vascular prosthetic device, implant and graft, initial encounter (principal); G56.92 Unspecified mononeuropathy of left upper limb; E11.22 Type 2 diabetes mellitus with diabetic chronic kidney disease; Z99.2 Dependence on renal dialysis; Z86.79 Personal history of other diseases of the circulatory system; E11.65 Type 2 diabetes mellitus with hyperglycemia; R94.31 Abnormal electrocardiogram [ECG] [EKG]; I12.0 Hypertensive chronic kidney disease with stage 5 chronic kidney disease or end stage renal disease; N18.6 End stage renal disease; N28.9 Disorder of kidney and ureter, unspecified; Z79.4 Long term (current) use of insulin; Z79.891 Long term (current) use of opiate analgesic; Z79.01 Long term (current) use of anticoagulants; Z95.5 Presence of coronary angioplasty implant and graft; Z86.19 Personal history of other infectious and parasitic diseases; Z87.442 Personal history of urinary calculi; Z88.1 Allergy status to other antibiotic agents; Z91.018 Allergy to other foods
CPT/HCPCS: 80053; 84484; 85027; 85610; 85730; 93005; 93931; 93971; 99281; 99284

== ENCOUNTER 2018-04-04 17:34 | Emergency (ER) | payer OTHER ==
[~2018-04-04] VITALS: Ht 182.9 cm; Wt 157.7 kg
[~2018-04-04 17:34] MED LIST changes: +GABAPENTIN100 MG PO; +PERCOCET 5/31 TABLET PO
[2018-04-04 18:27] LABS: HEMATOCRIT 37.1 % (38.0-50.0); HEMOGLOBIN 12.5 G/DL (12.5-16.6); MCH 31.5 PG (29.0-34.0); MCHC 33.7 G/DL (30.0-36.0); MCV 93.5 FL (86-99); PLATELET COUNT 207 K/uL (156-360); RED BLOOD COUNT 3.97 M/uL (4.00-5.50); WHITE BLOOD COUNT 11.2 K/uL (4.1-10.2)
[2018-04-04 18:36] LABS: CHLORIDE 98 mEq/L (99-109); POTASSIUM 3.7 mEq/L (3.7-5.4); SODIUM 139 mEq/L (136-147)
[2018-04-04 18:37] LABS: GLUCOSE 122 mg/dL (70-99)
[2018-04-04 18:41] LABS: CREATININE 2.5 mg/dL (0.6-1.3); GFR ESTIMATE (CALCULATED) 27 mL/min/ (58.99-99999)
[2018-04-04 18:42] LABS: UREA NITROGEN (BUN) 20 mg/dL (9-23)
[2018-04-04 18:48] LABS: TROP-I INTERPRETATION NEGATIVE; TROPONIN-I 0.02 ng/mL (0.0-0.30)
[2018-04-04 20:15] VITALS: BP 135/50
== END 2018-04-04 20:17 | disposition home or self-care (01) ==
LOC: EME 17:34
PROVIDERS: Emergency Medicine
DX: E86.0 Dehydration (principal); E11.9 Type 2 diabetes mellitus without complications; N28.9 Disorder of kidney and ureter, unspecified; Z99.2 Dependence on renal dialysis; Z79.4 Long term (current) use of insulin; Z79.01 Long term (current) use of anticoagulants; Z79.891 Long term (current) use of opiate analgesic; Z86.19 Personal history of other infectious and parasitic diseases; Z87.442 Personal history of urinary calculi; Z88.1 Allergy status to other antibiotic agents; Z91.018 Allergy to other foods
CPT/HCPCS: 80048; 84484; 85027; 99281; 99284

== ENCOUNTER 2018-05-20 16:39 | Emergency (ER) | payer OTHER ==
[~2018-05-20] VITALS: Ht 182.9 cm; Wt 160.0 kg
[2018-05-20 17:57] LABS: HEMATOCRIT 38.9 % (38.0-50.0); HEMOGLOBIN 12.9 G/DL (12.5-16.6); MCH 30.9 PG (29.0-34.0); MCHC 33.2 G/DL (30.0-36.0); MCV 93.1 FL (86-99); PLATELET COUNT 280 K/uL (156-360); RBC DIS.WIDTH-CV 13.8 % (11.8-14.6); RBC DIS.WIDTH-SD 46.6 % (39-53); RED BLOOD COUNT 4.18 M/uL (4.00-5.50); WHITE BLOOD COUNT 10.7 K/uL (4.1-10.2)
[2018-05-20 18:06] LABS: ALBUMIN 4.2 g/dL (3.2-4.8); CHLORIDE 94 mEq/L (99-109); POTASSIUM 4.4 mEq/L (3.7-5.4); SODIUM 137 mEq/L (136-147)
[2018-05-20 18:09] LABS: GLUCOSE 110 mg/dL (70-99); TOTAL PROTEIN 8.7 g/dL (6.4-8.3)
[2018-05-20 18:11] LABS: TOTAL BILIRUBIN 0.5 mg/dL (0.0-1.0)
[2018-05-20 18:12] LABS: ALKALINE PHOSPHATASE 81 IU/L (3-129)
[2018-05-20 18:13] LABS: CREATININE 2.5 mg/dL (0.6-1.3); GFR ESTIMATE (CALCULATED) 27 mL/min/ (58.99-99999)
[2018-05-20 18:14] LABS: AST (GOT) 18 IU/L (2-34); UREA NITROGEN (BUN) 22 mg/dL (9-23)
[2018-05-20 18:15] LABS: ALT (GPT) 7 IU/L (3-49)
[2018-05-20 22:15] VITALS: BP 130/109
== END 2018-05-20 22:17 | disposition home or self-care (01) ==
LOC: EME 16:39
DX: H53.8 Other visual disturbances (principal); R51 Headache; Z94.7 Corneal transplant status; E11.22 Type 2 diabetes mellitus with diabetic chronic kidney disease; I12.0 Hypertensive chronic kidney disease with stage 5 chronic kidney disease or end stage renal disease; N18.6 End stage renal disease; Z99.2 Dependence on renal dialysis; Z79.4 Long term (current) use of insulin; Z79.01 Long term (current) use of anticoagulants; Z88.1 Allergy status to other antibiotic agents
CPT/HCPCS: 70450; 80053; 85027; 99281; 99284

== ENCOUNTER 2018-05-25 12:12 | Emergency (ER) | payer OTHER ==
[~2018-05-25] VITALS: Ht 182.9 cm; Wt 160.0 kg
[2018-05-25 13:02] LABS: HEMATOCRIT 37.4 % (38.0-50.0); HEMOGLOBIN 12.3 G/DL (12.5-16.6); MCH 31.1 PG (29.0-34.0); MCHC 32.9 G/DL (30.0-36.0); MCV 94.7 FL (86-99); PLATELET COUNT 266 K/uL (156-360); RBC DIS.WIDTH-CV 13.9 % (11.8-14.6); RBC DIS.WIDTH-SD 48.1 % (39-53); RED BLOOD COUNT 3.95 M/uL (4.00-5.50); WHITE BLOOD COUNT 11.3 K/uL (4.1-10.2)
[2018-05-25 13:14] LABS: CHLORIDE 101 mEq/L (99-109); POTASSIUM 5.1 mEq/L (3.7-5.4); SODIUM 140 mEq/L (136-147)
[2018-05-25 13:15] LABS: GLUCOSE 126 mg/dL (70-99)
[2018-05-25 13:19] LABS: GFR ESTIMATE (CALCULATED) 18 mL/min/ (58.99-99999)
[2018-05-25 13:20] LABS: UREA NITROGEN (BUN) 29 mg/dL (9-23)
[2018-05-25 13:23] LABS: CREATININE 3.6 mg/dL (0.6-1.3)
[2018-05-25 13:25] LABS: TROP-I INTERPRETATION NEGATIVE; TROPONIN-I 0.04 ng/mL (0.0-0.30)
[2018-05-25 15:22] VITALS: BP 134/93
== END 2018-05-25 15:23 | disposition home or self-care (01) ==
LOC: EME 12:12
DX: R00.2 Palpitations (principal); R00.0 Tachycardia, unspecified; R53.1 Weakness; I12.0 Hypertensive chronic kidney disease with stage 5 chronic kidney disease or end stage renal disease; E11.22 Type 2 diabetes mellitus with diabetic chronic kidney disease; N18.6 End stage renal disease; Z99.2 Dependence on renal dialysis; I48.91 Unspecified atrial fibrillation; Z79.01 Long term (current) use of anticoagulants; Z79.4 Long term (current) use of insulin
CPT/HCPCS: 71046; 80048; 84484; 85027; 85610; 93005; 99281; 99284

== ENCOUNTER 2018-05-26 11:39 | Day surgery (SDC) | payer OTHER | END 2018-05-26 14:44 | disposition home or self-care (01) | LOC: CATH 11:39 | PROVIDERS: Surgery | PROC: 057Y3ZZ Dilation of Upper Vein, Percutaneous Approach (ICD-10-PCS; principal; 2018-05-26) | DX: T82.858A Stenosis of other vascular prosthetic devices, implants and grafts, initial encounter (principal); Y83.2 Surgical operation with anastomosis, bypass or graft as the cause of abnormal reaction of the patient, or of later complication, without mention of misadventure at the time of the procedure; I12.0 Hypertensive chronic kidney disease with stage 5 chronic kidney disease or end stage renal disease; E11.22 Type 2 diabetes mellitus with diabetic chronic kidney disease; N18.6 End stage renal disease; Z99.2 Dependence on renal dialysis; I48.91 Unspecified atrial fibrillation; Z79.01 Long term (current) use of anticoagulants; Z79.4 Long term (current) use of insulin | CPT/HCPCS: 82948; 87641; C1725; C1769; C1894; J1644; J2250; J3010 ==